=== PATIENT | female | born 1995 | race Caucasian/White ===

== ENCOUNTER 2019-10-10 23:53 | Emergency (ER) | payer MEDICAID ==
[~2019-10-10] VITALS: Ht 162.6 cm; Wt 77.3 kg
[2019-10-11 00:04] VITALS: TEMP 98.6
[2019-10-11 00:58] VITALS: BP 126/80; PULSE 98
== END 2019-10-11 01:13 | disposition home or self-care (01) ==
LOC: COL.ER 23:53
DX: O9A.213 Injury, poisoning and certain other consequences of external causes complicating pregnancy, third trimester (principal); S93.402A Sprain of unspecified ligament of left ankle, initial encounter; Z3A.36 36 weeks gestation of pregnancy; W10.8XXA Fall (on) (from) other stairs and steps, initial encounter; Y92.009 Unspecified place in unspecified non-institutional (private) residence as the place of occurrence of the external cause

== ENCOUNTER → 2019-10-11 | Outpatient (CLI) | payer MEDICAID ==
[~2019-10-11] VITALS: Ht 160 cm; Wt 77.7 kg
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
[2019-10-11 01:30] VITALS: BP 112/62; PULSE 99; TEMP 98
[2019-10-11 02:00] VITALS: BP 112/62; PULSE 99; TEMP 98
[2019-10-11 02:30] VITALS: PULSE 94
[2019-10-11 03:00] VITALS: PULSE 92
[2019-10-11 03:40] VITALS: PULSE 96
--- NOTE | 2019-10-11 03:50 | NUR ---
0340- MONITORING DC'D FOLLOWING REACTIVE STRIP FOR [address] ALLEN PER DR. HUSTON. 0350- DISCHARGE INSTRUCTIONS REVIEWED WITH PT, PT OFF THE UNIT VIA WHEELCHAIR DUE TO ANKLE INJURY.
== END ==
LOC: LDRO 01:36
DX: O9A.213 Injury, poisoning and certain other consequences of external causes complicating pregnancy, third trimester (principal); Z3A.36 36 weeks gestation of pregnancy

== ENCOUNTER 2019-11-09 23:34 | Outpatient (CLI) | payer MEDICAID ==
[~2019-11-09] VITALS: Ht 162.6 cm; Wt 80.9 kg
--- NOTE | 2019-11-09 23:40 | NUR ---
PT ARRIVED TO UNIT AMBULATORY WITH FOB WITH CONCERNS OF DECREASED MOVEMENT. PT STATES THAT SHE HAS FELT SMALL MOVEMENTS FROM BABY THROUGHOUT THE DAY BUT BABY IS USUALLY MORE ACTIVE. PT ORIENTED TO ROOM, CHANGED INTO GOWN, EFMX2 APPLIED, VS OBTAINED, SVE PERFORMED.
[2019-11-09 23:53] VITALS: BP 114/64; PULSE 86; TEMP 97.6
[2019-11-10 00:30] VITALS: BP 114/64; PULSE 86; TEMP 97.6
--- NOTE | 2019-11-10 00:50 | NUR ---
0050- SVE UNCHANGED, REASSURING FHT'S NOTED, PT STATES FEELING BABY MOVING MORE SINCE ARRIVAL TO THE UNIT. PT OFF MONITORS AT THIS TIME. MAY DC HOME PER DR. CAPUTO PREVIOUS ORDER. 0120- REVIEWED DISCHARGE INSTRUCTIONS WITH PT AND FOB, UNDERSTANDING VERBALIZED. PT HAD MANY QUESTIONS CONCERNING HER SCHEDULED INDUCTION FOR 11/11/19, THESE QUESTION WERE ENCOURAGED AND ANSWERED. PT AND FOB OFF THE UNIT AMBULATORY FOR HOME.
== END 2019-11-10 01:20 | disposition home or self-care (01) ==
LOC: LDRO 23:34 → LDR 23:38 → LDRO 11-10 01:20
DX: O36.8130 Decreased fetal movements, third trimester, not applicable or unspecified (principal); Z3A.40 40 weeks gestation of pregnancy; Z86.14 Personal history of Methicillin resistant Staphylococcus aureus infection; Z86.19 Personal history of other infectious and parasitic diseases
CPT/HCPCS: OP

== ENCOUNTER 2019-11-11 07:14 | Inpatient (IN) | payer MEDICAID ==
[~2019-11-11] VITALS: Ht 162.6 cm; Wt 80.9 kg
[2019-11-11] VITALS (62 sets, daily range): BP systolic 85–161; BP diastolic 49–94; PULSE 68–117; TEMP 97.5–98.7
--- NOTE | 2019-11-11 07:20 | NUR ---
0720-41.0 G1 ambulatory to LR 4 with significant other. Oriented to room and assisted into gown. Placed on EFM. Maternal FHR elevated 112bpm. FHR 130bpm. Maternal temp 98.1 oral. Patient assessment complete. IV to right forearm, blood collected and sent to lab per orders. LR started ,see EMAR. Reviewed consents SVE by this RN, unable to reach cervix with out patient becoming uncomfortable. RN stopped exam. 0800-Pitocin per orders, see EMAR 0808-Dr. Tripp on unit. Reviews strip and plan of care with patient. SVE by /-.
[2019-11-11 08:27] LABS: BASO % 0.2 % (0.0-2.0); EOS # 0.1 (0.0-0.7); EOS % 0.6 % (0-4.0); GRAN # 6.7 (1.4-6.5); GRAN % 78.1 % (42.2-75.2); HEMOGLOBIN 11.2 g/dl (12.5-16.0); LYMPH # 1.2 (1.2-3.4); LYMPH % 13.6 % (20.0-51.0); MEAN CELL VOLUME 89 fl (80.0-100.0); MEAN CORPUSCULAR HEMOGLOBIN 30 pg (27.0-31.0); MEAN CORPUSCULAR HGB CONC 34 g/dl (33.0-37.0); MEAN PLATELET VOLUME 10.7 fl (7.4-10.4); MONO # 0.5 (0.1-0.6); MONO % 6.3 % (1.7-9.3); PLATELET COUNT 171 K/mm3 (130-400); RED BLOOD COUNT 3.74 M/mm3 (4.10-5.30); REDCELL DISTRIBUTION WIDTH-CV 12.8 % (11.5-14.5)
[2019-11-11 08:33] LABS: HEMATOCRIT 33.1 % (37.0-47.0)
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
--- NOTE | 2019-11-11 09:22 | NUR ---
0922-Dr. Tripp to patient room. Palpates uterus. Insturcts RN to continue to increase pitocin per protocol to keep contractions regualr and palpating moderate to firm. Pitocin currently infusing at 12mu/min. Patient denies pain with contractions. RN adjusts EFM.
--- NOTE | 2019-11-11 12:50 | NUR ---
1250-Dr. Tripp on unit. Reviews FHR monitor. SVE by unchnaged from previous /-2. MD palpates abdomen and gives orders to increase pitocin per protocol to max dose 26mu/min.
--- NOTE | 2019-11-11 15:00 | NUR ---
1500-Difficulty tracing contractions due to maternal positioning.
--- NOTE | 2019-11-11 16:50 | NUR ---
1650-MD on unit, reviews FHR monitor, orders Premarin cream. 1652-SVE by MD with use of premarin cream, AROM clear fluid, cervix /-2 per MD. May care provided. Updated on plan of care.
--- NOTE | 2019-11-11 18:30 | NUR ---
183- BEDSIDE REPORT CHARTED. 1837- PT UP TO BATHROOM. 1899- PT REPORTS THAT SHE IS THINKING ABOUT GETTING AN EPIDURAL FOR PAIN MANAGEMENT. OPTIONS DISCUSSED AND QUESTIONS ANSWERED. PT WILL LET NURSE KNOW WHEN SHE IS READY. 1913- PT DECIDES SHE IS READY FOR AN EPIDURAL. WINNIE HAND BRAILLE TRANSCRIBER CALLED. 1919- PT UP TO BATHROOM. 1929- WINNIE HAND BRAILLE TRANSCRIBER AT BEDSIDE FOR EPIDURAL. PT POSITIONED SITTING ON EDGE OF BED. WINNIE ANSWERS PT QUESTIONS. 1942- EPIDURAL TEST DOSE. 1946- EPIDURAL COMPLETE AND PT POSITIONED LAYING LEFT WEDGE. 1952- PT COMPLAINS OF LEFT SIDE MORE PAINFUL. WINNIE AT BEDSIDE. 1955- PT NOW STATES IT IS HER RIGHT SIDE THAT IS CONTINUING TO HURT. PT REPOSITIONED TO RIGHT LATERAL, PEANUT BALL IN USE. 2009- PT REPORTS FEELING MORE COMFORTABLE AT THIS TIME. 2029- PT RESTING QUIETLY 2034- DÍAZ CATHETER TO DEPENDENT DRAINAGE. SVE BY THIS NURSE 2-/-3. 2049- PT RESTING QUIETLY 2129- PT REPORTS BEING COMFORTABLE, POPCICLE PROVIDED.
--- NOTE | 2019-11-11 22:30 | NUR ---
2230- PT RESTING QUIETLY 2335- PT REPORTS BEING ABLE TO SLEEP SOME. DENIES PAIN AT THIS TIME. SVE BY THIS NURSE /-2. PT REPOSITIONED IN LEFT LATERAL AND MON ITORS ADJUSTED.
[2019-11-12] VITALS (46 sets, daily range): BP systolic 94–124; BP diastolic 51–70; PULSE 67–115; TEMP 98.1–100.8
--- NOTE | 2019-11-12 | NUR ---
0000- PT RESTING QUIETLY 0105- PT CALLS OUT WITH MILD PAIN IN HER "VAGINA" PT ENCOURAGED TO USE EPIDURAL WIRE WELDER BUTTON. PT WILL CALL OUT IF THIS DOES NOT PROVIDE RELIEF. 0125- PT RESTING QUIETLY. 0145- PT RESTING QUIETLY. NURSE TO BEDSIDE. NEW LR HUNG AND INFUSING. 0150- SVE BY THIS NURSE 4-/-1. PT ASSISTED TO RIGHT LATERAL AND PILLOWS ADJUSTED FOR COMFORT. PT DENIES FURTHER NEEDS AT THIS TIME.
--- NOTE | 2019-11-12 02:10 | NUR ---
0210- PT RESTING QUIETLY 0300- PT RESTING QUIETLY 0330- PT CALLS OUT WANTING HELP TO CHANGE POSITION. 0335- PT ASSISTED TO LEFT WEDGE POSITION. SVE BY THIS NURSE /. PILLOWS ADJUSTED FOR COMFORT. PLAN OF CARE DISCUSSED WITH PT AND QUESTIONS ANSWERED. 0349- DR MORRIS CALLS AND IS UPDATED ON SVE, STRIP ASSESSMENT, PT COMFORT, AND VITAL SIGNS. OK TO LABOR DOWN AT THIS TIME. 0430- PT CALLS OUT STATING SHE IS A LITTLE NAUSEOUS. BASIN PROVIDED. PT DENIES PRESSURE AT THIS TIME.
--- NOTE | 2019-11-12 05:00 | NUR ---
0500- PT RESTING QUIETLY 0550- PT STATES SHE HAS BEEN ABLE TO REST. SVE BY THIS NURSE /+2. DISCUSSED PUSHING AND ANSWERED QUESTIONS. 0600- PT POSITIONED IN FOOTPLATES. DÍAZ CATHETER REMOVED WITH MODERATE AMOUNT OF BLOOD IN URINE. 0605- PT BEGINS COACHED PUSHING WITH CONTRACTIONS.
--- NOTE | 2019-11-12 10:00 | NUR ---
0630 - Assumed care of pt from Jim Woodall RN. Pt has been pushing with contractions with Jim Woodall RN, continuing pushing at this time. 0800 - Pt continues pushing with RN at bedside. FHT WNL, variable decels with pushing, recovering quickly. Late decel noted at 0802 with FHR to 120, recovering after 15 seconds. 0805 - Dr. Tripp to pt bedside for evaluation. Orders to continue pushing with pt at this time. Provider remains on unit. 0820 - Pt counseled by Dr. Tripp about using vacuum to assit with delivery. Pt verbally consents to use. Pt and room prepped for delivery. Malik Palomo RN of nursery called to pt bedside. 0830 - Vacuum applied by Dr. Tripp, physician assisting with vacuum during pushes. 0836 - Female infant delivered by Dr. Tripp and placed on mother's abdomen. Care of infant transferred to Malik Palomo RN of nursery. Cord blood drawn by Dr. Tripp. Pt given lidocaine at perineum by Dr. Tripp in anticipation of repair. 0845 - Placenta delivered by Dr. Tripp. Pt in pain with fundal massage. Nathalie Gonzalez CRNA called to bedside. Pt given IV Fentanyl by Nathalie Gonzalez for pain control at 0852. Pitocin started per protocol. Repair of 3rd degree perineal laceration completed by Dr. Tripp. Bladder drained by physician with brian salomon. Ice pack and panties placed. Pt repositioned for comfort.
--- NOTE | 2019-11-12 12:38 | NUR ---
Pt up to bathroom at 1220. Ambulated with 1 standby assist. Sat on toilet, unable to void at this time. Perineum very swollen, hemorrhoids noted. Pt states she "feels like she needs to push" and "is more comfortable with pressure on my rectum". Clean panties and ice pack placed. Pt stood and stated that she felt dizzy and couldn't hear, heard "rushing" in her ears. Pt pivoted to wheel chair and cool rag placed on neck. New gown placed. Pt taken to room via wheelchair. Pt stated she felt much better and was able to stand and transfer to bed unassisted. Pt resting comfortably at this time.
--- NOTE | 2019-11-12 14:20 | NUR ---
Pt unable to void after 20 min attempt. Pt straight cathed using red robbin in bed. 850ml clear yellow urine drained from bladder. Pt tolerated well. Pericare completed, clean ice pack applied.
[2019-11-13 00:15] VITALS: BP 89/50; PULSE 88; TEMP 97.8
[2019-11-13 07:37] VITALS: BP 100/54; PULSE 101; TEMP 98.3
[2019-11-13] MEDS ORDERED: IBU600 MG PO (09:05)
[2019-11-13] MEDS ORDERED: PERCOCET 325 MG1 TA2 PO (09:05)
--- NOTE | 2019-11-13 10:32 | NUR ---
Initial visit Parents thanked [employer] Monk for offering congratulations and God's blessings for the of their daughter. Buddhist Monk thanked family for choosing [facility].
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
[2019-11-13 17:03] VITALS: BP 96/34; PULSE 113; TEMP 98.7
[2019-11-13 20:00] VITALS: BP 105/57; PULSE 114; TEMP 99.2
[2019-11-14 08:30] VITALS: BP 99/54; PULSE 93; TEMP 98.1
--- NOTE | 2019-11-14 16:34 | NUR ---
6215 DISCHARGE INSTRUCTIONS REVIEWED WITH PATIENT. PATIENT VERBALIZED UNDERSTANDING. 1400 ALL PERSONAL BELONGINGS GATHERED FROM PATIENT ROOM. PATIENT LEFT VIA WHEELCHAIR IN NO APPARENT DISTRESS. PATIENT ACCOMPANIED BY SIGNIFICANT OTHER, THIS RN, AND DONAL DAEVNPORT.
== END 2019-11-14 14:00 | disposition home or self-care (01) | DRG 768 ==
LOC: LDR 07:14 → OB 14:24
PROVIDERS: ADMIT Obstetrics & Gynecology
PROC: 10D07Z6 Extraction of Products of Conception, Vacuum, Via Natural or Artificial Opening (ICD-10-PCS; principal; 2019-11-11)
PROC: 0DQR0ZZ Repair Anal Sphincter, Open Approach (ICD-10-PCS; 2019-11-11)
DX: O48.0 Post-term pregnancy (principal); Z37.0 Single live birth; O71.4 Obstetric high vaginal laceration alone; Z3A.41 41 weeks gestation of pregnancy; O75.81 Maternal exhaustion complicating labor and delivery; O99.02 Anemia complicating childbirth
CPT/HCPCS: J2590; J3010; J7120